=== PATIENT | male | born 1965 | race Caucasian/White ===

== ENCOUNTER 2022-01-26 18:14 | Outpatient (CLI) | payer OTHER, SELFPAY ==
--- NOTE | ~2022-01-26 | CT_ITS ---
EXAMINATION: CT lung screening DATE: 01/26/2022 18:30 INDICATION: Lung cancer screening. Personal history of tobacco dependence. TECHNIQUE: Computed tomography (CT) of the chest was performed without intravenous contrast. The dose -length product was 132.89 mGy-cm. Automated exposure control and iterative reconstruction technique were employed. COMPARISON: CT dated 05/19/2019 FINDINGS: Heart size normal. No significant pleural or pericardial effusion. No thoracic lymphadenopa thy. No significant pleural or pericardial effusion. There are right adrenal nodules, largest measuri ng 2.3 cm, consistent with benign adenoma. No there are. Fissural nodules on the left, largest measur ing 5 mm. These are unchanged. Smaller 1-2 mm nodules bilaterally are unchanged, likely benign. Calci fied granuloma left lung base. No endobronchial lesions. No pneumothorax. No acute osseous abnormalit y. IMPRESSION: 1. Lung-RADS category 2: Benign appearance or behavior. Continue annual screening with noncontrast lo w-dose chest CT in 12 months. Reviewed, dictated and finalized at location A. IMPRESSION: 1. Lung-RADS category 2: Benign appearance or behavior. Continue annual screeni ng with noncontrast low-dose chest CT in 12 months.
== END 2022-01-26 18:15 | disposition home or self-care (01) ==
PROVIDERS: PCP Family Medicine; Visit Provider Family Medicine
DX: Z12.2 Encounter for screening for malignant neoplasm of respiratory organs (principal); Z87.891 Personal history of nicotine dependence
CPT/HCPCS: 71271

== ENCOUNTER 2022-10-24 17:51 | Emergency (ER) | payer OTHER, SELFPAY ==
[2022-10-24 17:58] VITALS: BP 144/84; PULSE 78; RESP 20; TEMP 37.2; O2SAT 100
--- NOTE | 2022-10-24 18:21 | ED.SKABFB ---
HPI - Skin/Abscess/Foreign Bdy General Chief complaint: Skin/Abscess/Foreign Body Stated complaint: eye and rash on forehead Time Seen by Provider: 10/24/22 18:10 Source: patient, family, RN notes reviewed and old records reviewed Mode of arrival: ambulatory Limitations: no limitations Related Data Allergies Allergy/AdvReac Type Severity Reaction Status Date / Time Penicillins Allergy Unknown rash/hives Verified 10/24/22 18:14 amoxicillin Allergy Rash AND Verified 10/24/22 18:14 DIAPHORETIC Review of Systems Review of Systems: CONSTITUTIONAL: Denies fever, chills, or sweats. EYES: Denies visual changes. Reports redness,, irritation, discharge. ENT: Denies rhinorrhea, congestion, sore throat, or otalgia. CARDIOVASCULAR: Denies chest pain, palpitations, or edema. RESPIRATORY: Denies cough or dyspnea. SKIN: Denies rash or itching. NEUROLOGIC: Denies headache PMFSH Past Medical History Medical History Erectile dysfunction Essential hypertension Gastro-esophageal reflux disease without esophagitis Hyperlipidemia, unspecified Impaired fasting glucose Lung abscess Lung nodule MVP (mitral valve prolapse) Nicotine dependence, unspecified, uncomplicated Nonrheumatic mitral (valve) insufficiency Family History Family History Mother Family history of diabetes mellitus in first degree relative Family history of coronary artery disease Sibling Family history of diabetes mellitus in first degree relative Family history of coronary artery disease Father Family history of lung cancer Social History Social History Smoking packs per day: 1 Smoking cigarettes per day: 20.0 Years smoked: 35 Smoking pack-years: 35.00 Smoking status: Heavy tobacco smoker Tobacco type: cigarettes Second hand tobacco smoke exposure: No Alcohol intake: never Substance use: never Substance use type: does not use Living arrangements: with family Occupation/Education: occupation Gender identity (if verbalized by the patient): Male Comments At time of signature, agree with nursing past medical, surgical, social and family history. There is no relevant family history pertinent to the presenting complaint Exam Narrative: GENERAL: Well-appearing, well-nourished, and in no acute distress. HEAD: Normocephalic, atraumatic. EYES: PERRLA and EOMI. Upper and lower eyelids unremarkable. No periorbital cellulitis noted. Sclera and conjunctivae injected ENT: Nares clear, no rhinorrhea or epistaxis. Mucous membranes moist. NECK: Supple. CHEST: Clear to auscultation. No respiratory distress. HEART: Regular rate and rhythm. No murmur heard. Normal peripheral pulses. SKIN: Warm, dry, no rash. NEURO: No focal deficits. Alert and oriented x3. Course Course Emergency Course: Patient is aware of diagnosis, understands and agrees to treatment plan. Anticipatory guidance given. Patient agrees to follow-up as directed and is aware of reasons to seek care at the emergency department. Portions of this record may have been created with voice recognition software Level of Care: Express Care Visit Vital Signs Vital signs: Vital Signs Temperature 37.2 C 10/24/22 17:58 Pulse Rate 78 10/24/22 17:58 Respiratory Rate 20 10/24/22 17:58 Blood Pressure 144/84 H 10/24/22 17:58 Pulse Oximetry 100 10/24/22 17:58 Oxygen Delivery Room Air 10/24/22 17:58 Temperature 37.2 C 10/24/22 17:58 Pulse Rate 78 10/24/22 17:58 Respiratory Rate 20 10/24/22 17:58 Blood Pressure 144/84 H 10/24/22 17:58 Pulse Oximetry 100 10/24/22 17:58 Oxygen Delivery Room Air 10/24/22 17:58 Reviewed Discharge Plan Discharge Clinical Impression: Shingles rash Qualifiers: Herpes zoster complications: with ocular involvement Herpes zoster ocular complication detail
--- NOTE | 2022-10-24 18:34 | ED.SKABFB ---
HPI - Skin/Abscess/Foreign Bdy General Chief complaint: Skin/Abscess/Foreign Body Stated complaint: eye and rash on forehead Time Seen by Provider: 10/24/22 18:10 Source: patient, family, RN notes reviewed and old records reviewed Mode of arrival: ambulatory Limitations: no limitations History of Present Illness HPI narrative: 57 year old male accompanied by with reports of right eye pain which started on Sunday, patient states eye felt irritated. Patient reports that yesterday morning he noticed rash to his right frontal head and scalp and then today he noticed some red lesions on area of eyebrow with swelling to right eye lid noted also. Patient reports that his vision is a little blurry pain to his right eye starting on Sunday. Visual acuity 20/40 right eye, 20/20 left with no corrective lenses. Patient has taken Aleve for his discomfort. MD complaint: other (shingles rash around right eye and eye lid red and swollen) Onset (ago): day(s) (pain on Sunday, rash yesterday 1 day ago) Severity scale (1-10): 1 Treatments prior to arrival: NSAID (aleve) Related Data Allergies Allergy/AdvReac Type Severity Reaction Status Date / Time Penicillins Allergy Unknown rash/hives Verified 10/24/22 18:14 amoxicillin Allergy Rash AND Verified 10/24/22 18:14 DIAPHORETIC Review of Systems Review of Systems: CONSTITUTIONAL: Denies fever, chills, or sweats. EYES: Reports visual blurry right eye . Reports redness,, irritation,no discharge, rash noted to area under eyebrow with right eyelid swollen and red, rash to forehead and hairline blistery ENT: Denies rhinorrhea, congestion, sore throat, or otalgia. CARDIOVASCULAR: Denies chest pain, palpitations, or edema. RESPIRATORY: Denies cough or dyspnea. SKIN: reports rash no itching. NEUROLOGIC: Denies headache PMFSH Past Medical History Medical History Erectile dysfunction Essential hypertension Gastro-esophageal reflux disease without esophagitis Hyperlipidemia, unspecified Impaired fasting glucose Lung abscess Lung nodule MVP (mitral valve prolapse) Nicotine dependence, unspecified, uncomplicated Nonrheumatic mitral (valve) insufficiency Family History Family History Mother Family history of diabetes mellitus in first degree relative Family history of coronary artery disease Sibling Family history of diabetes mellitus in first degree relative Family history of coronary artery disease Father Family history of lung cancer Social History Social History Smoking packs per day: 1 Smoking cigarettes per day: 20.0 Years smoked: 35 Smoking pack-years: 35.00 Smoking status: Heavy tobacco smoker Tobacco type: cigarettes Second hand tobacco smoke exposure: No Alcohol intake: never Substance use: never Substance use type: does not use Living arrangements: with family Occupation/Education: occupation Gender identity (if verbalized by the patient): Male Comments At time of signature, agree with nursing past medical, surgical, social and family history. There is no relevant family history pertinent to the presenting complaint Exam Narrative: GENERAL: Well-appearing, well-nourished, and in no acute distress. HEAD: Normocephalic, atraumatic. EYES: PERRLA and EOMI. right upper eyelid is swollen lower eyelid unremarkable, Left Upper and lower eyelids unremarkable. No periorbital cellulitis noted. Sclera right eye is injected. Left eye appears normal. ENT: Nares clear, no rhinorrhea or epistaxis. Mucous membranes moist. NECK: Supple. no lymphadenopathy CHEST: Clear to auscultation. No respiratory distress. SAO2 100% on room air HEART: Regular rate and rhythm. No murmur heard. Normal peripheral pulses. SKIN: Warm, dry, red raised grouped rash noted above right eye, forehead and to hairline right side of
== END 2022-10-24 18:47 | disposition home or self-care (01) ==
PROVIDERS: Emergency Provider Registered Nurse; PCP Family Medicine
DX: B02.9 Zoster without complications (principal); F17.210 Nicotine dependence, cigarettes, uncomplicated; I10 Essential (primary) hypertension; K21.9 Gastro-esophageal reflux disease without esophagitis; E78.5 Hyperlipidemia, unspecified; I34.1 Nonrheumatic mitral (valve) prolapse; I34.0 Nonrheumatic mitral (valve) insufficiency
CPT/HCPCS: 99213; G0463

== ENCOUNTER → 2023-01-29 14:57 | Outpatient (CLI) | payer OTHER, SELFPAY ==
--- NOTE | ~2023-01-29 | CT_ITS ---
CT Scan of the Chest without Contrast: Clinical Indication: Lung cancer screening, personal history of nicotine dependence Technique: Contiguous sections were acquired throughout the chest without intravenous contrast. Dose reduction technique was used on this scan by utilizing automated exposure control and iterative recon struction technique. The dose-length product (DLP) was 110.05 mGy-cm. COMPARISON: 01/26/2022 and 05/19/2019 Findings: There is no evidence of any significant mediastinal, hilar or axillary lymphadenopathy. Coronary jaime ry calcifications are present. There is no evidence of pleural or pericardial effusion. There are multiple subcentimeter groundglass nodules in the bilateral lung apices/upper lobes. Stable nodule along the left oblique fissure. Images through the upper abdomen reveal right adrenal adenoma. Impression: Lung RADS 2: Benign appearance. 12 month follow-up screening CT advised. Multiple subcentimeter groundglass nodules in the upper lobes could reflect infectious process. Reviewed, dictated and finalized at [facility]. Impression: Lung RADS 2: Benign appearance. 12 month follow-up screening CT advised. Multiple subcentimeter groundglass nodules in the upper lobes could reflect inf ectious process.
== END ==
PROVIDERS: PCP Family Medicine; Visit Provider Physician Assistant
DX: Z12.2 Encounter for screening for malignant neoplasm of respiratory organs (principal); F17.210 Nicotine dependence, cigarettes, uncomplicated
CPT/HCPCS: 71271

== ENCOUNTER → 2023-02-26 15:22 | Outpatient (CLI) | payer OTHER, SELFPAY ==
--- NOTE | ~2023-02-26 | CT_ITS ---
EXAMINATION:CT diagnostic chest wo con DATE: 02/26/2023 15:40 INDICATION: Pneumonia. Multiple pulmonary nodules. TECHNIQUE: Computed tomography (CT) of the chest was performed without intravenous contrast. Automate d exposure control and iterative reconstruction technique were employed. The dose-length product (DLP ) was 119.06 mGy-cm. COMPARISON: Chest CT 01/29/2023, 01/26/2022 FINDINGS: There is mild scarring at the lung apices. There are nodules and groundglass nodules in the lungs with an upper lobe predominance measuring up to 4 mm, improved from 01/29/2023. No pleural effu ne. The heart size is normal. There are coronary artery calcifications. No pericardial effusion. Th ere is mild bilateral gynecomastia. There is severe thoracic spondylosis. IMPRESSION: 1. Small pulmonary nodules and groundglass nodules in the lungs with an upper lobe predominance with improvement from 01/29/2023, likely infection. Reviewed, dictated and finalized at location [facility]. IMPRESSION: 1. Small pulmonary nodules and groundglass nodules in the lungs with an upper l obe predominance with improvement from 01/29/2023, likely infection.
== END ==
PROVIDERS: PCP Family Medicine; Visit Provider Physician Assistant
DX: J18.9 Pneumonia, unspecified organism (principal); R91.8 Other nonspecific abnormal finding of lung field
CPT/HCPCS: 71250

== ENCOUNTER 2024-06-29 13:29 | Emergency (ER) | payer OTHER, SELFPAY ==
--- NOTE | ~2024-06-29 | XR_ITS ---
XR chest 2V DATE: 06/29/2024 14:18 INDICATION: Chest congestion, cough. Smoker. TECHNIQUE: 2 views COMPARISON: 02/26/2023 CT chest FINDINGS: Normal heart size. No hilar or mediastinal enlargement. No pulmonary infiltrate or consolidation, pleural effusion or pulmonary vascular congestion or pneumo thorax is detected. IMPRESSION: No active cardiopulmonary disease Reviewed, dictated and finalized at location A. N ROOM HOUSEPERSON
[2024-06-29 13:41] VITALS: BP 144/70; PULSE 68; RESP 16; TEMP 36.6; O2SAT 100
--- NOTE | 2024-06-29 13:43 | ED.URI ---
HPI - URI/Sore Throat General Chief Complaint: Upper Respiratory Infection Stated Complaint: Chest Congestion/Cough History of Present Illness HPI Narrative: patient presents with 3 week hisotry of chest congestion now he has a cough productive at times no fever no body aches no shortness of breath and no chest pain. patient is a long time smoker and is concerned that he may have pneumonia. Related Data Home Medications ?Medication ?Instructions ?Recorded ?Confirmed ?Last Taken ?Type apremilast 30 mg tablet (Otezla) 30 mg PO QAM AND QPM 01/22/24 06/29/24 Unknown History clobetasol 0.05 % topical ointment topical 06/29/24 Unknown History Allergies Allergy/AdvReac Type Severity Reaction Status Date / Time Penicillins Allergy Unknown rash/hives Verified 01/22/24 16:25 amoxicillin Allergy Rash AND Verified 01/22/24 16:25 DIAPHORETIC Review of Systems Review of Systems: CONSTITUTIONAL: Denies chills, or sweats. Reports fever and generalized body aches EYES: Denies visual changes, redness, or discharge. ENT: Denies otalgia. Reports nasal congestion runny nose and sore throat CARDIOVASCULAR: Denies chest pain, palpitations, or edema. RESPIRATORY: Denies dyspnea. Reports occasional cough GASTROINTESTINAL: Denies abdominal pain, nausea, vomiting, or diarrhea. GENITOURINARY: Denies dysuria or hematuria. SKIN: Denies rash or itching. MUSCULOSKELETAL: Denies back pain, joint pain, or myalgia. Reports generalized body aches NEUROLOGIC: Denies headache, numbness, or weakness. PSYCHIATRIC: Denies anxiety or depression. FOR[facility]LY [facility], [facility] Past Medical History Medical History Erectile dysfunction Essential hypertension Gastro-esophageal reflux disease without esophagitis Hyperlipidemia, unspecified Impaired fasting glucose Lung abscess Lung nodule MVP (mitral valve prolapse) Nicotine dependence, unspecified, uncomplicated Nonrheumatic mitral (valve) insufficiency Family History Family History Mother Family history of diabetes mellitus in first degree relative Family history of coronary artery disease Sibling Family history of diabetes mellitus in first degree relative Family history of coronary artery disease Father Family history of lung cancer Social History Social History (Reviewed 07/16/24 @ 16:24 by ABIEL Godoy Smoking packs per day: 1 Smoking cigarettes per day: 20.0 Years smoked: 35 Smoking pack-years: 35.00 Smoking status: Heavy tobacco smoker Tobacco type: cigarettes Second hand tobacco smoke exposure: No Alcohol intake: never Substance use: never Substance use type: does not use Do You Feel Safe in your Home?: Yes Lack of Transportation: No Lack of Food: Never True Current Housing: I Have Housing Concerned About Future Housing: No Difficulty Paying Gas/Electric Bills: No Difficulty Paying for Meds: No Currently Unemployed: No Education: Trade/Vocational Certificate Difficulty w/ Childcare or Family Care: No Living arrangements: with family Occupation/Education: occupation Gender identity (if verbalized by the patient): Male Comments At time of signature, agree with nursing past medical, surgical, social and family history. There is no relevant family history pertinent to the presenting complaint Exam Narrative: The patient is a well-developed, well-nourished in no acute distress. SKIN: Skin is warm and dry without erythema, swelling or exudate. There is good turgor. No tenting. HEAD: Atraumatic. Normocephalic. No temporal or scalp tenderness. EYES: Moist and bright. Sclera and conjunctivae normal. No discharge. PERRLA. Extraocular motions intact. Gross visual acuity intact. EARS: Pinna is normal shape and contour. Clear external auditory canals. TM pearly fournier with good cone of light, no erythema or suppuration. Bilateral cerumen noted no gross hearing deficit. NOSE: pink, moist mucosa with good air movement. Clear rhinorrhea without nasal flaring. Septum midline. Mouth: moist mucous membranes. THROAT; mild erythema noted to posterior oropharynx with moderate postnasal drainage. Without exudate or ulceration.. Uvula midline. Normal movement of soft palate. NECK: Supple and nontender with full range of motion without discomfort. No meningeal signs. LUNGS: Equal and bilateral breath sounds without wheezes, rales or rhonchi. CHEST: The chest wall is without retractions or use of accessory muscles. HEART: Has a regular rate and rhythm without murmur, gallops, click or rub. ABDOMEN: Soft, nontender with positive active bowel sounds. No rebound tenderness. EXTREMITIES: Without cyanosis, clubbing or edema. Equal 2+ distal pulses and 2 second capillary refill noted. NEUROLOGIC: alert, active, . The patient moves all extremities with normal muscle strength. Normal muscle tone is noted. Normal coordination is noted. NO focal neurological findings noted. Course Course Level of Care: Express Care Visit Vital Signs Vital signs: Vital Signs Temperature 36.6 C 06/29/24 13:41 Pulse Rate 68 06/29/24 13:41 Respiratory Rate 16 06/29/24 13:41 Blood Pressure 144/70 H 06/29/24 13:41 Pulse Oximetry 100 06/29/24 13:41 Oxygen Delivery Room Air 06/29/24 13:41 Temperature 36.6 C 06/29/24 13:41 Pulse Rate 68 06/29/24 13:41 Respiratory Rate 16 06/29/24 13:41 Blood Pressure 144/70 H 06/29/24 13:41 Pulse Oximetry 100 06/29/24 13:41 Oxygen Delivery Room Air 06/29/24 13:41 Please MARGA schedule a followup visit with your personal physician for further evaluation and treatment. Including recheck and discussion of your blood pressure. If your symptoms persist, change or worsen significantly before you can contact your personal physician then please, without delay, go to the emergency department for further evaluation MDM - URI/Sore Throat Imaging Data Radiologist's impression: nt: Pierce Littlejohn : 1965 MR#: [id number] Age: 58 Acct:[id number] Loc: [facility] ADM Date: 06/29/24Attending Dr: Ordering Physician: Echo Romo APRN Date of Service: 06/29/24 Procedure(s): XR chest 2V Accession Number(s): [id number] cc: Juan Luis Sherwood MD; Echo Romo APRN~ XR chest 2V DATE: 06/29/2024 14:18 INDICATION: Chest congestion, cough. Smoker. TECHNIQUE: 2 views COMPARISON: 02/26/2023 CT chest FINDINGS: Normal heart size. No hilar or mediastinal enlargement. No pulmonary infiltrate or consolidation, pleural effusion or pulmonary vascular congestion or pneumothorax is detected. IMPRESSION: No active cardiopulmonary disease Reviewed, dictated and finalized at location [facility]. E DEVELOPER Dictated By: Vargas Barillas MD 06/29/24 1434 Signed By: <Electronically signed by Vargas Barillas MD in [place]> Discharge Plan Discharge Clinical Impression: Upper respiratory infection, Bronchitis, Viral infection Patient Disposition: Home, Self-Care Condition: Stable Instructions: Acute Bronchitis (ED) Additional Instructions: Increase fluids and rest 1. Bronchitis will generally resolve on it's own and may take a few weeks. Bronchitis is usually caused by a virus, but sometimes it may be bacterial. Antibiotics generally do not help bronchitis go away faster. Yellow or green mucous, does not always mean bacterial. If you are prescribed an antibiotic for your symptoms be sure to take the entire course of antibioitics. Take with food. It is also suggested to take with yogurt or a probiotic to decrease GI side effects. You may also be prescribed a steroid, if so, be sure to take entire course, first thing in the morning with food. 2. Rest and drink lots of fluids. Maintain a good diet, with foods rich in vitamins and minerals, and lots of fruits and vegetables. 3. Drinking hot tea, warm tea with honey, sucking on cough drops or hard candy, throat lozenges may help with sore throat. 4. OTC cough and cold medications are okay to take for your symptoms, including Mucinex expectorant. 5. If you have high BP, Coricidin HBP is behind the counter , you may ask your pharmacist for this. Otherwise, avoid medications that have a D at the end or a decongestant in them. These medications may increase your BP. 6. Breathing in warm, moist air, such as in the shower or a humidifier at your bedside or in your home. 7. Avoid smoking or being around those who smoke. 8. Protect yourself and others, cover your mouth when you cough and sneeze, and always wash your hands to prevent the spread of germs, if you are unable to, use hand counter waitress/waiter. . . Patient Language: Romanian Prescriptions: New benzonatate 100 mg capsule 100 mg PO TID PRN (Reason: cough) 5 Days Qty: 10 0RF fluticasone propionate [Flonase Allergy Relief] 50 mcg/actuation spray,suspension 2 spray NASAL BID Qty: 9.9 0RF Rx Instructions: administer into each nostril prednisone 20 mg tablet 20 mg PO DAILY Qty: 10 0RF No Action valacyclovir [Valtrex] 1 gram tablet 1,000 mg PO TID Qty: 21 0RF clobetasol 0.05 % ointment TOPICAL Otezla 30 mg tablet 30 mg PO QAM AND QPM tadalafil 10 mg tablet 5 mg PO DAILY PRN (Reason: sexual activity) Qty: 15 3RF Rx Instructions: take 1/2 tab po 30 min before sexual activity; do not use more than 1 dose in 24hrs clobetasol 0.05 % gel 1 applic TOPICAL BID PRN (Reason: as needed) Qty: 30 1RF atorvastatin 20 mg tablet See Rx Instructions .ROUTE .COMPLEX Qty: 90 2RF Dose Instruction: TAKE 1 TABLET BY MOUTH EVERY NIGHT AT BEDTIME Rx Instructions: TAKE 1 TABLET BY MOUTH EVERY NIGHT AT BEDTIME pantoprazole [Protonix] 40 mg tablet,delayed release (DR/EC) 40 mg PO QAM Qty: 90 3RF valsartan 40 mg tablet 40 mg PO DAILY Qty: 90 1RF nadolol 40 mg tablet 40 mg PO DAILY Qty: 90 2RF Follow-up/Referrals: Juan Luis Sherwood MD [Primary Care Provider] -
--- OUTSIDE RECORDS SUMMARY | 2024-07-06 19:24 | XMS_ITS | Clinical Summary ---
Author Organization [facility] Care Team Providers Care Airplane Pilot Photogrammetry Name Role Phone Unavailable Primary Care Provider Unavailabl e Medications nadolol (CORGARD) 40 MG Tablet Take 1 Tab by mouth daily. 90 Tab 0 11/03/2016 Active Social History Tobacco Use Types Packs/Day Years Used Date Smoking Tobacco: Never Assessed Sex and Gender Information Value Date Recorded Sex Assigned at Not on file Legal Sex Male 10:13 PM CDT Gender Identity Not on file Sexual Orientation Not on file Plan of Treatment Health Maintenance Due Date Last Done Comments Hepatitis C Virus (HCV) Screening 1965 TdaP Immunization 1965 Colonoscopy 2008 Colorectal Cancer Screening 2008 Cologuard 2013 Immunochemical Fecal Occult Blood 2013 Zoster Immunization (1 of 2) 2013 PSA Discussion 2018 SARS-COV-2 Immunization ( season) 2023 Influenza Immunization (Seas on Ended) 2024 Hepatitis B Immunization Aged Out No longer eligible based on patient's age to complete this topic Meningococcal Immunization (ACWY) Aged Out No longer eligible based on patient's age to complete this topic Pneumococcal Immunization Combined Aged Out No longer eligible based on patient's age to complete this topic Rotavirus Immunization Aged Out No lo nger eligible based on patient's age to complete this topic
== END 2024-06-29 15:05 | disposition home or self-care (01) ==
PROVIDERS: Emergency Provider Nurse Practitioner Family; PCP Family Medicine
DX: J06.9 Acute upper respiratory infection, unspecified (principal); J40 Bronchitis, not specified as acute or chronic; B34.9 Viral infection, unspecified; F17.210 Nicotine dependence, cigarettes, uncomplicated; I10 Essential (primary) hypertension; K21.9 Gastro-esophageal reflux disease without esophagitis; E78.5 Hyperlipidemia, unspecified; I34.1 Nonrheumatic mitral (valve) prolapse; I34.0 Nonrheumatic mitral (valve) insufficiency
CPT/HCPCS: 71046; 99213; G0463

== ENCOUNTER 2024-08-22 16:07 | Emergency (ER) | payer OTHER, SELFPAY ==
--- OUTSIDE RECORDS SUMMARY | 2024-08-22 16:09 | XMS_ITS | Clinical Summary ---
Author Organization [facility] Care Team Providers Care Education Coordinator Name Role Phone Unavailable Primary Care Provider [...] Cologuard 2013 Immunochemical Fecal Occult Blood 2013 Pneumococcal Immunization (5 0+ years) (1 of 1 - PCV) 2013 Zoster Immunization (1 of 2) 2013 PSA Discussion 2018 Influenza Immunization (#1) 2024 SARS-COV-2 Immunization ( - season) 2024 Respiratory Syncytial Virus (RSV) Immunization (Adult) (1 - 1-dose 75+ series) 2038 Hepatitis B Immunization Aged Out No longer [...]
[2024-08-22 16:11] VITALS: BP 153/80; PULSE 71; RESP 20; TEMP 37.3; O2SAT 97
--- NOTE | 2024-08-22 16:19 | ED.URI ---
HPI - URI/Sore Throat General Chief Complaint: Upper Respiratory Infection Stated Complaint: cough/headache/chest burn Source: patient Mode of arrival: ambulatory Limitations: no limitations History of Present Illness HPI Narrative: 59 y/o male presented for c/o headache, nasal congestion, cough, and chills. Onset yesterday. Reports the cough is painful. was sick with similar symptoms. Pt is taking zyrtec. Denies sob, wheezing, n/v/d, fever or lethargy. Related Data Home Medications ?Medication ?Instructions ?Recorded ?Confirmed ?Last Taken ?Type apremilast 30 mg tablet (Otezla) 30 mg PO QAM AND QPM 01/22/24 08/22/24 Unknown History Zyrtec 08/22/24 Unknown History Allergies Allergy/AdvReac Type Severity Reaction Status Date / Time Penicillins Allergy Unknown rash/hives Verified 08/22/24 16:16 amoxicillin Allergy Rash AND Verified 08/22/24 16:16 DIAPHORETIC Review of Systems Review of Systems: per HPI All systems reviewed & are unremarkable except as noted in HPI and below PMFSH Past Medical History Medical History (Updated 08/22/24 @ 16:46 by Lily Casas APRN) Colon polyp Lung abscess Lung nodule Erectile dysfunction Essential hypertension MVP (mitral valve prolapse) Nonrheumatic mitral (valve) insufficiency Gastro-esophageal reflux disease without esophagitis Nicotine dependence, unspecified, uncomplicated Impaired fasting glucose Hyperlipidemia, unspecified Surgical History Surgical History (Updated 07/25/24 @ 09:44 by Musa Auguste MD) H/O colonoscopy Family History Family History Mother Family history of diabetes mellitus in first degree relative Family history of coronary artery disease Sibling Family history of diabetes mellitus in first degree relative Family history of coronary artery disease Father Family history of lung cancer Social History Social History Smoking packs per day: 1 Smoking cigarettes per day: 20.0 Years smoked: 35 Smoking pack-years: 35.00 Smoking status: Heavy tobacco smoker Tobacco type: cigarettes Second hand tobacco smoke exposure: No Alcohol intake: never Substance use: never Substance use type: does not use Do You Feel Safe in your Home?: Yes Lack of Transportation: No Lack of Food: Never True Current Housing: I Have Housing Concerned About Future Housing: No Difficulty Paying Gas/Electric Bills: No Difficulty Paying for Meds: No Currently Unemployed: No Education: Trade/Vocational Certificate Difficulty w/ Childcare or Family Care: No Living arrangements: with family Occupation/Education: occupation Gender identity (if verbalized by the patient): Male Spiritual care concerns: No Comments At time of signature, I have reviewed and agree with nursing past medical, surgical, social and family history unless otherwise noted. Please see nursing chart for further information. There is no relevant family history pertinent to the presenting complaint Exam Narrative: GENERAL: Well-appearing, in no acute distress. EYES: EOMI. No redness or drainage. Conjunctivae normal. ENT: Mucous membranes pink and moist. No rhinorrhea. Right TM mildly erythematous. Left TM normal. Throat normal. Uvula midline. NECK: Normal AROM. Supple. CHEST: No respiratory distress. Lungs clear to all trujillo. HEART: Regular rate and rhythm. No murmur appreciated. SKIN: Warm, dry, no rash. Capillary refill normal. Normal skin turgor. NEURO: Alert and oriented x3. Gait steady. Course Course Emergency Course: Patient is aware of diagnosis, understands and agrees to treatment plan. Anticipatory guidance given. Patient agrees to follow-up as directed and is aware of reasons to seek care at the emergency department. Portions of this record may have been created with voice recognition software Level of Care: Express Care Visit Vital Signs Vital signs: Vital Signs Temperature 99.2 F 08/22/24 16:11 Pulse Rate 71 08/22/24 16:11 Respiratory Rate 20 08/22/24 16:11 Blood Pressure 153/80 H 08/22/24 16:11 Pulse Oximetry 97 08/22/24 16:11 Oxygen Delivery Room Air 08/22/24 16:11 Temperature 99.2 F 08/22/24 16:11 Pulse Rate 71 08/22/24 16:11 Respiratory Rate 20 08/22/24 16:11 Blood Pressure 153/80 H 08/22/24 16:11 Pulse Oximetry 97 08/22/24 16:11 Oxygen Delivery Room Air 08/22/24 16:11 MDM - URI/Sore Throat MDM Narrative Medical decision making narrative: Discussed physical exam findings. Advised supportive measures and signs/symptoms to go to the ER. Pt is appropriate for outpt treatment and f/u. Discharge Plan Discharge Clinical Impression: Bronchitis Patient Disposition: Home, Self-Care Condition: Stable Instructions: Antibiotic Form, Acute Bronchitis (ED) Additional Instructions: Flu and COVID negative today. It may be too early to detect the virus, therefore we recommend retesting at home in 1-2 days Continue to follow general precautions: frequent handwashing, wear a mask, isolate/social distance, and avoid crowds if you have a fever. You must be fever free for 24 hours without the use of fever reducing medication (Tylenol/ibuprofen) before returning to work/school/crowds. Recommendations: Flonase spray and Zyrtec (or Claritin/Neva) over the counter Cough syrup may cause drowsiness; avoid driving or take it at night time. Tylenol 1000mg every 8 hours as needed for pain Symptomatic treatment includes: rest, fluids, and increase humidity of the air at home. Follow up with your primary care provider in 1 week. Go to the ER for worsening symptoms or concerns. Patient Language: Belarusian Prescriptions: New methylprednisolone [Medrol (Kalen)] 4 mg tablets,dose pack See Rx Instructions .ROUTE .COMPLEX Qty: 21 0RF Rx Instructions: orally per package directions albuterol sulfate 90 mcg/actuation HFA aerosol inhaler 2 inh inhalation QID PRN (Reason: shortness of breath or wheezing) Qty: 8.5 0RF No Action Zyrtec fluticasone propionate [Flonase Allergy Relief] 50 mcg/actuation spray,suspension 2 spray NASAL BID Qty: 9.9 0RF Rx Instructions: administer into each nostril Otezla 30 mg tablet 30 mg PO QAM AND QPM tadalafil 10 mg tablet 5 mg PO DAILY PRN (Reason: sexual activity) Qty: 15 3RF Rx Instructions: take 1/2 tab po 30 min before sexual activity; do not use more than 1 dose in 24hrs atorvastatin 20 mg tablet See Rx Instructions .ROUTE .COMPLEX Qty: 90 2RF Dose Instruction: TAKE 1 TABLET BY MOUTH EVERY NIGHT AT BEDTIME Rx Instructions: TAKE 1 TABLET BY MOUTH EVERY NIGHT AT BEDTIME pantoprazole [Protonix] 40 mg tablet,delayed release (DR/EC) 40 mg PO QAM Qty: 90 3RF valsartan 40 mg tablet 40 mg PO DAILY Qty: 90 1RF nadolol 40 mg tablet 40 mg PO DAILY Qty: 90 2RF Follow-up/Referrals: Juan Luis Sherowod MD [Primary Care Provider] -
[2024-08-22 16:44] LABS: EDCOVIDSCREEN Negative (Negative); EDINFLUASCREEN Negative (Negative); EDINFLUBSCREEN Negative (Negative)
== END 2024-08-22 16:49 | disposition home or self-care (01) ==
PROVIDERS: Emergency Provider Nurse Practitioner Family; PCP Family Medicine
DX: J40 Bronchitis, not specified as acute or chronic (principal); I10 Essential (primary) hypertension; F17.210 Nicotine dependence, cigarettes, uncomplicated; Z20.822 Contact with and (suspected) exposure to COVID-19
CPT/HCPCS: 87426; 87804; 99213; G0463

== ENCOUNTER 2025-03-25 13:32 | Outpatient (CLI) | payer OTHER, SELFPAY ==
--- NOTE | ~2025-03-25 | NM_ITS ---
EXAMINATION: NM thyroid scan w uptake DATE: 03/26/2025 14:03 INDICATION: Thyrotoxicosis. COMPARISON: None. TECHNIQUE: 0.353 mCi [id number] was administered orally. Scintigraphic images of the thyroid gland were obtained at 24 hours. Thyroid uptake was calculated by the technologist. FINDINGS: The thyroid uptake is 25% (normal 10-30%), with the right lobe measuring 12% uptake and the left 13%. There is no focal area of decreased or increased activity to suggest hypofunctioning or hyperfunctioning nodule. IMPRESSION: 1. Normal thyroid scintigraphy and 24-hour iodine uptake. Reviewed, dictated and finalized at location E.
--- OUTSIDE RECORDS SUMMARY | 2025-03-25 13:54 | XMS_ITS | Clinical Summary ---
Author Organization [facility] Care Team Providers Care Scallop Binder Name Role Phone Unavailable Primary Care Provider [...] Virus (HCV) Screening 1965 TdaP Immunization 1963 Cologuard 2008 Colonoscopy 2008 Colorectal Cancer Screening 2008 Immunochemical Fecal Occult Blood 2008 Pneumococcal Immunization (5 0+ years) (1 of 1 - PCV) 2013 Zoster Immunization (1 of 2) 2013 SARS-COV-2 Immunization (1 - 2023- season) 2024 Influenza Immunization (#1) 2025 Respiratory Syncytial Virus (RSV) Immunization (Adult) (1 - 1-dose 75+ series) 2038 Hepatitis B Immunization Aged Out No longer eligible based on patient's age to complete this topic Human Papillomavirus (HPV) Immunization Aged Out No longer eligible b ased on patient's age to complete this topic Meningococcal Immunization (ACWY) Aged Out No longer eligible based on patient's age to complete this topic Rotavirus Immunization Aged Out No lo nger eligible based on patient's age to complete this topic
== END 2025-03-25 13:33 | disposition home or self-care (01) ==
PROVIDERS: PCP Family Medicine
DX: E05.90 Thyrotoxicosis, unspecified without thyrotoxic crisis or storm (principal)
CPT/HCPCS: 78014; A9516